=== PATIENT | female | born 1985 | race Caucasian/White ===

== ENCOUNTER 2022-01-13 22:31 | Emergency (ER) | payer SELFPAY ==
[2022-01-13] MEDS ORDERED: Lidocaine 1% PF 5 ML VIAL ONE (22:48)
[2022-01-13] MEDS ORDERED: Cephalexin 250 MG CAP ONE (23:00)
== END 2022-01-13 23:08 | disposition home or self-care (01) ==
LOC: BURERS 22:31
DX: L02.411 Cutaneous abscess of right axilla (principal)
CPT/HCPCS: 10060